=== PATIENT | male | born 1990 | race Caucasian/White ===

== ENCOUNTER 2019-01-12 06:47 | Emergency (ER) | payer MEDICAID ==
[~2019-01-12] VITALS: Ht 175.3 cm; Wt 90.0 kg
[~2019-01-12 06:47] MED LIST: METH-360 PO; ONDA4TAB6 PO
[2019-01-12 06:53] VITALS: BP 131/64
[2019-01-12] MEDS ORDERED: BENZ-16 PO (07:21)
[2019-01-12] MEDS ORDERED: PSEU120T84 PO (07:21)
== END 2019-01-12 07:33 | disposition home or self-care (01) ==
LOC: ER 06:47
DX: R05 Cough (principal); R09.81 Nasal congestion; J02.9 Acute pharyngitis, unspecified; I10 Essential (primary) hypertension; E03.9 Hypothyroidism, unspecified; Z86.14 Personal history of Methicillin resistant Staphylococcus aureus infection; Z98.890 Other specified postprocedural states; Z88.6 Allergy status to analgesic agent; Z88.0 Allergy status to penicillin; Z88.2 Allergy status to sulfonamides; Z88.5 Allergy status to narcotic agent; Z88.1 Allergy status to other antibiotic agents; Z79.899 Other long term (current) drug therapy
CPT/HCPCS: 99283

== ENCOUNTER 2020-01-13 12:46 | Emergency (ER) | payer MEDICAID ==
[~2020-01-13] VITALS: Ht 172.7 cm; Wt 114.5 kg
[~2020-01-13 12:46] MED LIST changes: +PSEU120T84 PO
[2020-01-13 13:05] VITALS: BP 143/81
[2020-01-13] MEDS ORDERED: LIDOcaine Viscous 15ml cup MM STA (14:19)
[2020-01-13] MEDS ORDERED: LIDO20SO16 TOP (14:36)
== END 2020-01-13 15:02 | disposition home or self-care (01) ==
LOC: ER 12:46
DX: L91.8 Other hypertrophic disorders of the skin (principal); I10 Essential (primary) hypertension; E03.9 Hypothyroidism, unspecified; Z86.14 Personal history of Methicillin resistant Staphylococcus aureus infection; Z90.89 Acquired absence of other organs; Z98.890 Other specified postprocedural states; Z88.0 Allergy status to penicillin; Z88.2 Allergy status to sulfonamides; Z88.5 Allergy status to narcotic agent; Z88.1 Allergy status to other antibiotic agents; Z79.899 Other long term (current) drug therapy
CPT/HCPCS: 99282; 99283

== ENCOUNTER 2020-10-31 01:24 | Emergency (ER) | payer MEDICAID ==
[~2020-10-31] VITALS: Ht 170.2 cm; Wt 120.0 kg
[~2020-10-31 01:24] MED LIST changes: +LIDO20SO16 TOP
[2020-10-31 01:35] VITALS: BP 131/85
[2020-10-31] MEDS ORDERED: DOXYCYCLINE 100MG CAPSULE PO STA (02:50)
[2020-10-31] MEDS ORDERED: DOXY-411 PO (03:01)
== END 2020-10-31 03:19 | disposition home or self-care (01) ==
LOC: ER 01:25
DX: L08.9 Local infection of the skin and subcutaneous tissue, unspecified (principal); N50.89 Other specified disorders of the male genital organs; F17.210 Nicotine dependence, cigarettes, uncomplicated
CPT/HCPCS: 99283

== ENCOUNTER 2021-01-03 14:01 | Emergency (ER) | payer MEDICAID ==
[~2021-01-03] VITALS: Ht 170.2 cm; Wt 100.9 kg
[2021-01-03 14:48] VITALS: BP 131/86
[2021-01-03] MEDS ORDERED: CEPH250T PO (15:04)
[2021-01-03] MEDS ORDERED: DOXY100C77 PO (15:04)
== END 2021-01-03 15:19 | disposition home or self-care (01) ==
LOC: ER 14:01
DX: L00 Staphylococcal scalded skin syndrome (principal); I10 Essential (primary) hypertension; E06.9 Thyroiditis, unspecified; Z88.6 Allergy status to analgesic agent; Z88.0 Allergy status to penicillin; Z88.2 Allergy status to sulfonamides; Z79.899 Other long term (current) drug therapy; Z88.5 Allergy status to narcotic agent; Z88.1 Allergy status to other antibiotic agents
CPT/HCPCS: 99283

== ENCOUNTER 2021-04-27 16:46 | Emergency (ER) | payer MEDICAID ==
[~2021-04-27] VITALS: Ht 170.2 cm; Wt 113.6 kg
[2021-04-27 17:16] VITALS: BP 127/88
[2021-04-27] MEDS ORDERED: CLIN-15 PO (17:31)
== END 2021-04-27 17:42 | disposition home or self-care (01) ==
LOC: ER 16:46
DX: H66.91 Otitis media, unspecified, right ear (principal); H92.01 Otalgia, right ear; H91.91 Unspecified hearing loss, right ear; I10 Essential (primary) hypertension; E03.9 Hypothyroidism, unspecified; Z86.14 Personal history of Methicillin resistant Staphylococcus aureus infection; Z90.89 Acquired absence of other organs; Z98.890 Other specified postprocedural states; Z88.0 Allergy status to penicillin; Z88.2 Allergy status to sulfonamides; Z88.5 Allergy status to narcotic agent; Z88.1 Allergy status to other antibiotic agents; Z88.6 Allergy status to analgesic agent; Z79.2 Long term (current) use of antibiotics; Z79.899 Other long term (current) drug therapy
CPT/HCPCS: 99283

== ENCOUNTER 2021-05-18 17:05 | Emergency (ER) | payer MEDICAID ==
[~2021-05-18] VITALS: Ht 170.2 cm; Wt 118.4 kg
[2021-05-18 17:41] VITALS: BP 134/89
[2021-05-18] MEDS ORDERED: DOXY-11 PO (18:05)
[2021-05-18] MEDS ORDERED: TETanus/Pertussis (Acell)/Diphther VAC/PF (Tdap-Adult) 0.5ml syringe IMVAC ONE (18:10)
[2021-05-18] MEDS ORDERED: DOXYCYCLINE 100MG CAPSULE PO STA (18:20)
== END 2021-05-18 18:34 | disposition home or self-care (01) ==
LOC: ER 17:29
DX: L02.411 Cutaneous abscess of right axilla (principal); I10 Essential (primary) hypertension; E03.9 Hypothyroidism, unspecified; Z86.14 Personal history of Methicillin resistant Staphylococcus aureus infection; Z90.89 Acquired absence of other organs; Z98.890 Other specified postprocedural states; Z88.0 Allergy status to penicillin; Z88.6 Allergy status to analgesic agent; Z20.3 Contact with and (suspected) exposure to rabies; Z88.5 Allergy status to narcotic agent; Z88.1 Allergy status to other antibiotic agents; Z79.2 Long term (current) use of antibiotics; Z79.899 Other long term (current) drug therapy
CPT/HCPCS: 10060; 87070; 90471; 90715; 99283

== ENCOUNTER 2021-12-23 22:32 | Emergency (ER) | payer MEDICAID ==
[~2021-12-23] VITALS: Ht 170.2 cm; Wt 121.9 kg
[2021-12-23 23:09] VITALS: BP 139/93
== END 2021-12-24 04:08 | disposition left against medical advice (07) ==
LOC: ER 22:33
DX: M79.602 Pain in left arm (principal); Z53.21 Procedure and treatment not carried out due to patient leaving prior to being seen by health care provider